=== PATIENT | female | born 1995 | race Caucasian/White ===

== ENCOUNTER 2017-03-16 07:52 | Emergency (ER) | payer OTHER ==
[~2017-03-16] VITALS: Ht 167.6 cm; Wt 51.8 kg
[2017-03-16 08:01] VITALS: TEMP 37; Ht 167.6 cm; Wt 51.8 kg
[2017-03-16 08:46] LABS: PREG INTERNAL NEGATIVE QC NEG CLEAR BACKGROUND; PREG INTERNAL POSITIVE QC POS CONTROL LINE
[2017-03-16 08:50] LABS: URINE APPEARANCE CLEAR (CLEAR); URINE COLOR DK YELLOW; URINE EPITHELIAL CELL AUTO >30 /lpf (0-5); URINE NITRITE NEG (NEG); URINE PH 5.5 (4.5-7.5); UROBILINOGEN NEG (NEG)
[2017-03-16 08:58] LABS: MANUAL MICROSCOPIC REQUIRED? NO; REVIEW REQ? YES; URINE BILIRUBIN NEG (NEG)
[2017-03-16 09:06] LABS: URINE MUCUS PRESENT (NONE PRSENT); URINE PATH CASTS 0-3 GRANULAR CASTS /lpf (0)
[2017-03-16 09:14] LABS: BUN/CREATININE RATIO 9.5 (10-20); CALCIUM 9.6 mg/dl (8.5-10.1); CREATININE 0.73 mg/dl (0.60-1.20); POTASSIUM 3.3 mmol/L (3.5-5.1)
[2017-03-16 09:23] LABS: ALB/GLOB RATIO 1.2 (0.9-2); THYROID STIMULATING HORMONE 1.62 uIu/ml (0.300-4.500)
[2017-03-16 09:31] LABS: MEAN CELL VOLUME 85.8 fL (80-100); MEAN CORPUSCULAR HEMOGLOBIN 27.9 pg (25-34); MEAN CORPUSCULAR HGB CONC 32.6 g/dl (32-36); MEAN PLATELET VOLUME 11.1 fL (7.4-10.4); PLATELET COUNT 259 K/uL (130-400); RED BLOOD COUNT 5.48 M/uL (4.2-5.4); WHITE BLOOD COUNT 10.33 K/uL (4.8-10.8)
[2017-03-16 09:32] LABS: LITHIUM 0.7 mMOL/L (0.6-1.2)
[2017-03-16 09:33] LABS: BENZODIAZEPINE, URINE POS (NEG); COCAINE,URINE NEG (NEG); PHENCYCLIDINE, URINE NEG (NEG)
[2017-03-16 09:36] LABS: ACETAMINOPHEN < 2 ug/ml (10-30)
[2017-03-16 09:37] LABS: BASO % 0.4 %; BASO ABS # 0.04 K/uL (0-0.2); COMPLETE YES; EOS % 0.6 %; IG% 0.1 %; LYMPH % 27.9 %; LYMPH ABS # 2.88 K/uL (1.2-3.4); MONO % 9.4 %; NEUT % 61.6 %
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
[2017-03-16] MEDS ORDERED: CLON1TAB3 PO (19:16)
[2017-03-16] MEDS ORDERED: LITH600C PO (19:16)
[2017-03-16] MEDS ORDERED: ZYPREXA PO (19:16)
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
[2017-03-16 20:13] VITALS: BP 116/84; PULSE 118; O2SAT 96
[2017-03-18 09:46] LABS: HYDROXYETHYLFLURAZEPAM CONF NEGATIVE NG/ML (CUTOFF=50); HYDROXYMIDAZOLAM NEGATIVE NG/ML (CUTOFF=50); HYDROXYTRIAZOLAM CONF NEGATIVE NG/ML (CUTOFF=50); TEMAZEPAM CONF NEGATIVE NG/ML (CUTOFF=50)
== END 2017-03-16 20:14 | disposition home or self-care (01) ==
LOC: C.EDB 07:54 → C.EDA 20:14
DX: F31.10 Bipolar disorder, current episode manic without psychotic features, unspecified (principal); E87.6 Hypokalemia; Z87.891 Personal history of nicotine dependence; Z87.898 Personal history of other specified conditions

== ENCOUNTER 2017-03-20 13:19 | Emergency (ER) | payer BC, OTHER ==
[~2017-03-20] VITALS: Ht 167.6 cm; Wt 49.1 kg
[~2017-03-20 13:19] MED LIST: CLON1TAB3 PO; LITH600C PO; ZYPREXA PO
[2017-03-20 13:42] VITALS: Ht 167.6 cm; Wt 49.1 kg
[2017-03-20 14:04] LABS: HEMATOCRIT 45.5 % (37-47); MEAN CELL VOLUME 85.5 fL (80-100); MEAN CORPUSCULAR HEMOGLOBIN 28.9 pg (25-34); MEAN CORPUSCULAR HGB CONC 33.8 g/dl (32-36); PLATELET COUNT 266 K/uL (130-400); RED BLOOD COUNT 5.32 M/uL (4.2-5.4); WHITE BLOOD COUNT 15.34 K/uL (4.8-10.8)
[2017-03-20 14:21] LABS: BUN/CREATININE RATIO 11.6 (10-20); CALCIUM 9.4 mg/dl (8.5-10.1); CREATININE 0.73 mg/dl (0.60-1.20); POTASSIUM 4.1 mmol/L (3.5-5.1)
--- NOTE | 2017-03-20 14:29 | EMERGENCY ROOM VISIT NOTE ---
History Report prepared by Bucky: Selwyn Roger Under the Supervision of: Dr. Eddie Sales M.D. First contact with patient: 13:33 Chief Complaint: MENTAL HEALTH EVALUATION Stated Complaint: MENTAL HEALTH History of Present Illness The patient is a 22 year old female who presents to the Emergency Room for a mental health evaluation. Per case management, she was seen in the ER last week on the for trouble sleeping. When she arrived to the ER, she immediately fell asleep. When she woke up, she was complaining of being anorexic, but then later ate copious amounts of hospital food. Per her mother, she may have a possible drug abuse issue. She was discharged home after her ED evaluation. Recently, she posted on facebook stating that she wanted to "leave this cruel world." Today, the patient states that all she wants to do is sleep. She has no idea what the white substance on her lips is. She has not been eating even though her mother puts $25 in her account everyday. She states that she is anorexic and does not want to eat any of the "shit" that [facility] has to offer her. She also lost her keys so she cannot drive anywhere to get food. She also says that she has been diagnosed with multiple mental disorders such as bipolar disorder, anorexia, and narcissism. She is "tired of everything." She occasionally goes to class when she can sleep, but does not go if she is up all night. She does not think that her mental health is stable, but she is unwilling to come into the hospital. Source of History: patient, nursing staff Onset: Recently Position: other (Mental Health) Symptom Intensity: moderate Quality: other (Mental Health) Timing: constant Note: She is having difficulty sleeping. She states that she has not been eating as well. Review of Systems See HPI for pertinent positives & negatives. A total of 10 systems reviewed and were otherwise negative. Past Medical & Surgical Medical Problems: (1) Bipolar disorder Family History Patient reports no known family medical history. Social History Smoking Status: Former Smoker Marital Status: single Housing Status: lives alone Occupation Status: [employer] student Current/Historical Medications Scheduled PRN Clonazepam (Klonopin), 1 MG PO DAILY PRN for Sleep Allergies Coded Allergies: No Known Allergies (Unverified , 03/20/17) Physical Exam Vital Signs Date Time Temp Pulse Resp B/P (MAP) Pulse Ox O2 Delivery O2 Flow Rate FiO2 03/20/17 15:45 65 16 112/69 99 Room Air 03/20/17 13:42 37.4 80 18 114/67 95 Room Air Physical Exam GENERAL: Patient is in no acute distress. HEENT: No acute trauma, normocephalic atraumatic. There is a dry, white, potential powder to the lips. Mucous membranes are dry. Lips are very chapped. NECK: No stridor, no adenopathy, no meningismus, trachea is midline. LUNGS: Clear to auscultation bilaterally, no wheeze, no rhonchi, breath sounds equal. HEART: Without murmurs gallops or rubs, regular rate and rhythm. ABDOMEN: Soft, nontender, bowel sounds positive, no hernias, no peritonitis. EXTREMITIES: No cyanosis or edema, full range of motion of all the joints without pain or difficulty, no signs for acute trauma. NEUROLOGIC: Oriented x 3, no acute motor or sensory deficits, no focal weakness. SKIN: No rash, no jaundice, no diaphoresis. PSYCHOLOGIC: Emotional and at times tearful. Labile. Sometimes verbally aggressive. Demonstrates a hard time focusing. Tangential thinking noted. Not currently voluntary. Medical Decision & Procedures Laboratory Results 03/20/17 13:53 03/20/17 13:53 Test 03/20/17 13:53 03/20/17 15:17 Red Blood Count 5.32 M/uL (4.2-5.4) Mean Corpuscular Volume 85.5 fL (80-100) Mean Corpuscular Hemoglobin 28.9 pg (25-34) Mean Corpuscular Hemoglobin Concent 33.8 g/dl (32-36) RDW Standard Deviation 42.4 fL (36.4-46.3) RDW Coefficient of Variation 13.6 % (11.5-14.5) Mean Platelet Volume 11.0 fL (7.4-10.4) Anion Gap 7.0 mmol/L (3-11) Est Creatinine Clear Calc Drug Dose 94.5 ml/min Estimated GFR () 136.5 Estimated GFR (Non- 117.7 BUN/Creatinine Ratio 11.6 (10-20) Calcium Level 9.4 mg/dl (8.5-10.1) Total Bilirubin 0.5 mg/dl (0.2-1) Aspartate Amino Transf (AST/SGOT) 12 U/L (15-37) Alanine Aminotransferase (ALT/SGPT) 17 U/L (12-78) Alkaline Phosphatase 70 U/L (45-117) Total Protein 8.0 gm/dl (6.4-8.2) Albumin 4.4 gm/dl (3.4-5.0) Globulin 3.6 gm/dl (2.5-4.0) Albumin/Globulin Ratio 1.2 (0.9-2) Thyroid Stimulating Hormone (TSH) 1.120 uIu/ml (0.300-4.500) Human Chorionic Gonadotropin, Qual NEG (NEG) Salicylates Level < 1.7 mg/dl (2.8-20) Acetaminophen Level < 2 ug/ml (10-30) [place] Level 1.2 mMOL/L (0.6-1.2) Ethyl Alcohol mg/dL < 3.0 mg/dl (0-3) Urine Color DK YELLOW Urine Appearance CLEAR (CLEAR) Urine pH 6.0 (4.5-7.5) Urine Specific [place] 1.021 (1.000-1.030) Urine Protein 1+ (NEG) Urine Glucose (UA) NEG (NEG) Urine Ketones TRACE (NEG) Urine Occult Blood NEG (NEG) Urine Nitrite NEG (NEG) Urine Bilirubin NEG (NEG) Urine Urobilinogen NEG (NEG) Urine Leukocyte Esterase SMALL (NEG) Urine WBC (Auto) 10-30 /hpf (0-5) Urine RBC (Auto) 0-4 /hpf (0-4) Urine Hyaline Casts (Auto) 10-30 /lpf (0-5) Urine Epithelial Cells (Auto) >30 /lpf (0-5) Urine Bacteria (Auto) NEG (NEG) Urine Opiates Screen NEG (NEG) Urine Methadone, Qualitative NEG (NEG) Urine Barbiturates NEG (NEG) Urine Phencyclidine (PCP) Level NEG (NEG) Ur Amphetamine/Methamphetamine NEG (NEG) MDMA (Ecstasy) Screen NEG (NEG) Urine Benzodiazepines Screen POS (NEG) Urine Cocaine Metabolite NEG (NEG) Urine Marijuana (THC) POS (NEG) Laboratory results reviewed by me. Medications Administered Medications (Trade) Dose Ordered Sig/Jose Route Start Time Stop Time Status Last Admin Dose Admin Clonazepam (Klonopin Tab) 2 mg NOW STAT PO 03/20/17 17:10 03/20/17 17:11 DC 03/20/17 17:38 2 MG ED Course 1333: The patient was evaluated in room A5. A complete history and physical exam was performed. 1710: Ordered Klonopin Tab 2 mg PO 2030: The patient was signed out to Dr. Correa at the change in shifts. Medical Decision Differential diagnosis includes but is not limited to drug or alcohol abuse, suicidal ideation, psychosis, manic episode, dehydration, electrolyte imbalance , and thyroid disorder. There is a moderate leukocytosis, this is likely consistent with the stress of her presentation. No concerning anemia. No significant electrolyte abnormality , kidney failure or hepatitis. The patient appears to be in a euthyroid state. testing is negative. [place] level is therapeutic. Alcohol, aspirin and Tylenol levels are undetectable. Urinalysis shows contamination, no infection. Urine tox shows benzos and marijuana. The patient was given oral Klonopin for anxiety. This seemed to help her agitation. On exam, the patient seemed psychotic, she had made some suicidal comments on social media. She was felt a danger to herself and possibly others. A 302 petition was generated, the warrant was signed. I did fill out the medical portion as I do think a psychiatric hospital stay is required. At this point, a bed search is underway. Dr. Correa has assumed care at the change of shift. Medication Reconcilliation Current Medication List: was personally reviewed by me Blood Pressure Screening Patient's blood pressure: Normal blood pressure Blood pressure disposition: Did not require urgent referral Impression Primary Impression: Psychosis Additional Impression: Suicidal ideation Scribe Attestation The scribe's documentation has been prepared under my direction and personally reviewed by me in its entirety. I confirm that the note above accurately reflects all work, treatment, procedures, and medical decision making performed by me. Departure Information Dispostion Still a Patient Referrals No Doctor, Assigned (PCP) Patient Instructions My [facility] Problem Qualifiers Primary Impression: Psychosis Psychosis type: unspecified psychosis type Qualified Codes: F29 - Unspecified psychosis not due to a substance or known physiological condition
[2017-03-20 14:31] LABS: ALB/GLOB RATIO 1.2 (0.9-2); THYROID STIMULATING HORMONE 1.12 uIu/ml (0.300-4.500)
[2017-03-20 14:37] LABS: ACETAMINOPHEN < 2 ug/ml (10-30); LITHIUM 1.2 mMOL/L (0.6-1.2); PREG INTERNAL NEGATIVE QC NEG CLEAR BACKGROUND; PREG INTERNAL POSITIVE QC POS CONTROL LINE
[2017-03-20 15:50] LABS: BENZODIAZEPINE, URINE POS (NEG); COCAINE,URINE NEG (NEG); PHENCYCLIDINE, URINE NEG (NEG)
[2017-03-20 16:08] LABS: URINE APPEARANCE CLEAR (CLEAR); URINE BILIRUBIN NEG (NEG); URINE COLOR DK YELLOW; URINE EPITHELIAL CELL AUTO >30 /lpf (0-5); URINE NITRITE NEG (NEG); URINE SPECIFIC GRAVITY 1.021 (1.000-1.030); UROBILINOGEN NEG (NEG); ZZUR CULT IF INDIC CLEAN CATCH YES
[2017-03-20 16:16] LABS: MANUAL MICROSCOPIC REQUIRED? NO; REVIEW REQ? NO
[2017-03-20] MEDS ORDERED: CLONAZEPAM 1 MG TAB PO STA (17:10)
--- NOTE | 2017-03-21 03:08 | EMERGENCY ROOM VISIT NOTE ---
ED Visit Note First contact with patient: 03:07 s/o from Dr. Sales. 302 for psychosis. Placement pending bed. Patient signed out to Dr. billings.
[2017-03-21] MEDS ORDERED: CLONAZEPAM 0.5 MG TAB PO STA (05:22)
--- NOTE | 2017-03-21 08:55 | EMERGENCY ROOM VISIT NOTE ---
ED Visit Note First contact with patient: 08:54 Patient signed out to me by Dr. gupta. Patient with psychosis here on a 302. Dr gupta gave patient Klonopin and she was able to rest during the majority of my shift. Patient awaiting placement. Patient signed out to Dr. Ngo.
[2017-03-21] MEDS ORDERED: HALOPERIDOL 5 MG TAB PO STA (10:51)
[2017-03-21] MEDS ORDERED: LITHIUM CARBONATE 300 MG TAB PO STA ×2 (10:51→10:56)
--- NOTE | 2017-03-21 13:05 | Psych Management Progress Note ---
Psychiatry Miscellaneous Date of Service: Mar 21, 2017. case reviewed given length of time in the ED, noticed that lithium level 1.2 but not listed on med rec. PDMP Query shows Klonopin 1 mg daily by Alli Carbone PA and a fill by a local [facility] pharmacy (shanika adhikari), confirmed lithium dose of 300 mg ER 4 tabs daily. Patient's case was reviewed for consideration for admission to our U as bedsearch unsuccessful so far, currently no female bed/private room and our seclusion room is unavailable due to acuity of another patient. I suggest Haldol 5 mg q4 hr prns agitation for wilfredo rather than additional prn benzo as ?drug history. If was taking Klonopin 1 mg daily, may make sense to start 0.5 mg BID for some calming effect which could then be tapered when placed on locked unit. Exhibiting labile mood in ED--silly, dancing to music, did comply with meds. Danna prn EPS from Haldol as history with antipsychotics is unknown. Would suggest [place] ER 600 mg po BID. Please contact liaison if additional questions/concerns prior to placement.
[2017-03-21 14:32] VITALS: TEMP 37.4
[2017-03-21] MEDS ORDERED: BENZTROPINE MESYLATE 1 MG TAB PO PRN ×2 (14:45→16:00)
[2017-03-21] MEDS ORDERED: LITH600C PO (15:14)
[2017-03-21] MEDS: HALOPERIDOL 5 MG TAB PO PRN ×2 (15:19→20:46)
--- NOTE | 2017-03-21 15:53 | EMERGENCY ROOM VISIT NOTE ---
ED Visit Note First contact with patient: 08:51 I received this patient in signout at the change of shift from Dr. Matias, pending mental health bed search. A 302 petitioning statement has been signed. Dr. Lerma has consulted and recommended multiple medications including twice a day Klonopin 0.5 mg, lithium 600 mg twice a day, 5 mg of Haldol every 4 hours when necessary as well as Cogentin as needed. These medications have been ordered. The patient was signed out to Dr. Castro, pending mental health bed placement.
[2017-03-21] MEDS: CLONAZEPAM 0.5 MG TAB PO SCH (20:46)
[2017-03-21] MEDS: LITHIUM CARBONATE 300 MG TAB PO SCH (21:00)
--- NOTE | 2017-03-21 22:20 | EMERGENCY ROOM VISIT NOTE ---
ED Visit Note First contact with patient: 15:28 This patient was signed out to me by Dr. Ngo at change of shift. She is here under 302 warrant. The patient is awaiting bed placement. Psychiatry did make recommendations regarding medications for the patient's which were ordered by Dr. Ngo. Patient was signed out to Dr. Matias at change of shift.
[2017-03-22] MEDS: CLONAZEPAM 0.5 MG TAB PO SCH (09:00)
--- NOTE | 2017-03-22 09:01 | EMERGENCY ROOM VISIT NOTE ---
ED Visit Note First contact with patient: 09:01 Patient signed out to me. No issues reported may with patient overnight. Patient awaiting placement. Psychiatry has seen and is rounding on the patient. Patient signed out to Dr. Bourgeois.
[2017-03-22] MEDS: LITHIUM CARBONATE 300 MG TAB PO SCH (10:16)
[2017-03-22 13:20] VITALS: BP 123/86; PULSE 83; O2SAT 98
--- NOTE | 2017-03-22 15:57 | EMERGENCY ROOM VISIT NOTE ---
ED Visit Note First contact with patient: 09:30 22 yr old female well known to mental health arrived 2 days ago for evaluation of acute psychosis and acute Bipolar episode. She has been here on 302 warrant for last 2 days. She medically evaluated and cleared originally by earlier physicians. Evaluated by me this morning after being signed out to me by Dr Matias awaiting mental health placement. She is not willing to talk to me but is listening to music and clearly not in any distress. Eventually accepted to [facility] and transferred there for further evaluation and treatment.
[2017-03-24 15:18] LABS: HYDROXYETHYLFLURAZEPAM CONF NEGATIVE NG/ML (CUTOFF=50); HYDROXYMIDAZOLAM NEGATIVE NG/ML (CUTOFF=50); HYDROXYTRIAZOLAM CONF NEGATIVE NG/ML (CUTOFF=50); TEMAZEPAM CONF NEGATIVE NG/ML (CUTOFF=50)
== END 2017-03-22 13:30 ==
LOC: EDBD 13:19 → C.EDA 13:21
DX: F29 Unspecified psychosis not due to a substance or known physiological condition (principal); R45.851 Suicidal ideations; F31.9 Bipolar disorder, unspecified; Z87.891 Personal history of nicotine dependence